=== PATIENT | female | born 1950 | race African-American/Black ===

== ENCOUNTER 2022-01-24 10:49 | Emergency (ER) | payer SELFPAY ==
[2022-01-24] MEDS ORDERED: Ketorolac Tromethamine 30 MG/ML VIAL ONE (11:32)
== END 2022-01-24 12:04 | disposition home or self-care (01) ==
LOC: ERS 10:49
DX: S39.012A Strain of muscle, fascia and tendon of lower back, initial encounter (principal); S40.011A Contusion of right shoulder, initial encounter; E11.9 Type 2 diabetes mellitus without complications; I25.2 Old myocardial infarction; W19.XXXA Unspecified fall, initial encounter
CPT/HCPCS: 96372; 99283; J1885

== ENCOUNTER 2022-02-01 15:31 | Emergency (ER) | payer OTHER ==
[2022-02-01] MEDS ORDERED: Ketorolac Tromethamine 30 MG/ML VIAL ONE (16:20)
== END 2022-02-01 16:34 | disposition home or self-care (01) ==
LOC: EDBD 15:31 → ERS 15:31
DX: M16.12 Unilateral primary osteoarthritis, left hip (principal); M19.011 Primary osteoarthritis, right shoulder; E11.9 Type 2 diabetes mellitus without complications
CPT/HCPCS: 96372; 99283; J1885